=== PATIENT | female | born 1930 | race Caucasian/White ===

== ENCOUNTER 2019-03-14 15:19 | Observation (INO) ==
[2019-03-14 15:27] VITALS: BMI 19.0
--- NOTE | 2019-03-14 16:16 | DR.EXTPAIN ---
HPI Time seen Time Seen by Provider: 03/14/19 16:09 PCP Primary Care Physician: DOMINIK HPI Comment HPI Comment: Patient states that [facility] but was unaware of the fall. She sustained a large hematoma of the forehead. There was no LOC. Complaint/Symptoms Chief Complaint Doctor Comments: Fell while [facility] the [facility] Chief Complaint:: PATSY BLACK AND STATE PT. HAD FALLEN AND HAS A LARGE HEMATOMA TO HER FOREHEAD. PT. C/O LEFT ELBOW PAIN. SKIN TEAR TO LEFT ELBOW. NO LOC. Source History Provided: Patient and Retirement Mode of arrival Mode of Arrival: Wheelchair Timing Onset of Chief Complaint: 03/14/19 PMH PMH Past Medical History: Yes Past Medical History: Anxiety, Arthritis, Depression, Dyslipidemia, GERD, Hypertension and Hypothyroidism Past Medical History Comment: WEDGE COMPRESSION FRACTURES OF LUMBAR VERTEBRA Past Surgical History: Yes Surgical History: Unknown Family History History of Family Medical Conditions: No Social History Does patient currently use any type of tobacco product: No Have you used tobacco products in the last 12 months: No Type of Tobacco Use: None Does any household member use tobacco: No Alcohol Use: None Do you use any recreational Drugs:: No Lives Where: [facility]irement infectious screening In the last 2 months have you had wt loss of >10#?: NO Have you had fever, night sweats or hemotysis?: No Have you traveled outside the country in the last 6 months?: No Isolation: Standard ROS Review of Systems Constitutional: No Symptoms Reported Eyes: Blurred Vision ENTM: No Symptoms Reported Respiratoy: No Symptoms Reported Cardiovascular: No Symptoms Reported Gastrointestinal/Abdominal: No Symptoms Reported Genitourinary: No Symptoms Reported Neurological: No Symptoms Reported Musculoskeletal: No Symptoms Reported Integumentary: No Symptoms Reported Hematologic/Lymphatic: No Symptoms Reported Psychiatric: No Symptoms Reported All Other Systems: Reviewed and Negative PE Vital Signs Vitals: Temperature 97.2 F Pulse Rate [Right Brachial] 93 Pulse Rate 91 Respiratory Rate 17 Blood Pressure [Left Arm] 159/69 Blood Pressure [Right Arm] 164/70 Blood Pressure 219/92 O2 Sat by Pulse Oximetry 95 General Limitations: No Limitations General Appearance: Alert and In No Apparent Distress Head Head Exam: Normal Inspection, Normocephalic and Other (A large hematoma on the left forehead) Eyes Eye exam: Normal Appearance, PERRL and EOMI ENT ENT Exam: Normal Exam, Normal Oropharynx, Normal External Ear Exam and TM's Normal Bilaterally Neck Neck Exam: Normal Inspection and Full ROM Chest Chest Inspection: Normal Inspection and Symmetric Chest Wall Rise Respiratory Respiratory Exam: Normal Lung Sounds Bilat Respiratory Exam: Bilateral: Clear to Auscultation Cardiovascular Cardiovascular Exam: Regular Rate and Normal Rhythm Abdominal Exam Abdominal Exam: Normal Inspection, Normal Bowel Sounds and Soft Extremities Extremities Exam: Normal Inspection Upper Extremities Shoulder Exam: Normal Inspection Arm Exam: Normal Inspection Forearm Exam: Normal Inspection Neuromotor Exam: Normal Exam Neurosensory Exam: Normal Exam Lower Extremities Hip/Pelvis Exam: Normal Inspection Upper Leg Exam: Normal Inspection Knee Exam: Normal Inspection Lower Leg Exam: Normal Inspection Ankle Exam: Normal Inspection Foot/Toe Exam: Normal Inspection and Full ROM Neurovascular/Tendon Exam: Normal Capillary Refill Gait Exam: Observed and Normal Back Back Exam: Normal Inspection Neurological Neurological Exam: Alert, Oriented X3 and CN II-XII Intact Psychiatric Psychiatric Exam: Normal Affect and Normal Mood Skin Skin Exam: Warm, Dry and Intact COURSE Treatment Treatment: Since admission the forehead has become engorged with a large hematoma. Consultation Called: 04:50 Consultation Comments: Dr. Craig agreed to admit for observations for neurochecks ROR Labs Reviewed Result Diagrams: 03/14/19 17:19 03/14/19 17:19 Laboratory: WBC 6.2 X10^3/uL (3.6-10.0) 03/14/19 17:19 RBC 3.90 X10^6/uL (3.5-5.4) 03/14/19 17:19 Hgb 13.1 g/dL (12.0-16.0) 03/14/19 17:19 Hct 38.6 % (36.0-47.0) 03/14/19 17:19 MCV 99.0 fL (80.0-100.0) 03/14/19 17:19 MCH 33.7 pg (27.0-34.0) 03/14/19 17:19 MCHC 34.0 g/dL (33.0-35.0) 03/14/19 17:19 RDW 16.5 % (11.6-16.5) 03/14/19 17:19 Plt Count 252 X10^3/uL (150.0-450.0) 03/14/19 17:19 MPV 6.9 fL (7.4-11.0) L 03/14/19 17:19 Neut % (Auto) 73.0 % (42.0-75.0) 03/14/19 17:19 Lymph % (Auto) 15.6 % (21.0-51.0) L 03/14/19 17:19 [place] % (Auto) 9.6 % (0.0-13.0) 03/14/19 17:19 Eos % (Auto) 1.2 % (0.9-2.9) 03/14/19 17:19 Baso % (Auto) 0.6 % (0.2-1.0) 03/14/19 17:19 Neut # (Auto) 4.6 x10^3/uL (2.2-4.8) 03/14/19 17:19 Lymph # (Auto) 1.0 X10^3/uL (1.3-2.9) L 03/14/19 17:19 [place] # (Auto) 0.6 x10^3/uL (0.3-0.8) 03/14/19 17:19 Eos # (Auto) 0.1 x10^3/uL (0.0-0.2) 03/14/19 17:19 Baso # (Auto) 0.0 X10^3/uL (0.0-0.1) 03/14/19 17:19 Absolute Nucleated RBC 0.0 /100WBC 03/14/19 17:19 INR Target Range - 03/14/19 17:19 INR 1.04 (0.8-1.3) 03/14/19 17:19 APTT 20.0 SECONDS (22.9-36.5) L 03/14/19 17:19 PTT Comment - 03/14/19 17:19 Sodium 141 mmol/L (136-145) 03/14/19 17:19 Corrected Sodium 141 mmol/L (136-145) 03/14/19 17:19 Potassium 4.4 mmol/L (3.5-5.1) 03/14/19 17:19 Chloride 108 mmol/L (98-107) H 03/14/19 17:19 Carbon Dioxide 25.2 mmol/L (21-32) 03/14/19 17:19 BUN 18 mg/dL (7-18) 03/14/19 17:19 Creatinine 0.77 mg/dL (0.55-1.02) 03/14/19 17:19 Est GFR (MDRD) Af Amer > 60 (>60) 03/14/19 17:19 Est GFR (MDRD) Non-Af > 60 (>60) 03/14/19 17:19 Glucose 117 mg/dL (65-99) H 03/14/19 17:19 Calcium 8.7 mg/dL (8.5-10.1) 03/14/19 17:19 Corrected Calcium TNP 03/14/19 17:19 Total Bilirubin 0.30 mg/dL (0.2-1.0) 03/14/19 17:19 AST 23 Units/L (15-37) 03/14/19 17:19 ALT 23 Units/L (12-78) 03/14/19 17:19 Alkaline Phosphatase 165 Units/L (46-116) H 03/14/19 17:19 Creatine Kinase 60 Units/L (26-192) 03/14/19 17:19 CK-MB (CK-2) 1.7 ng/mL (0-4.0) 03/14/19 17:19 CK/CKMB % Calc 2.8 % (<4) 03/14/19 17:19 Troponin I < 0.02 ng/mL (0-1.5) 03/14/19 17:19 Total Protein 7.1 g/dL (6.4-8.2) 03/14/19 17:19 Albumin 3.5 g/dL (3.4-5.0) 03/14/19 17:19 Globulin 3.6 g/dL (2.5-4.5) 03/14/19 17:19 Albumin/Globulin Ratio 1.0 Ratio (1.1-2.1) L 03/14/19 17:19 Other Results Comments: CT Brain: Large frontal scalp hematoma without fracture or acute intracranial abnormality. Left Elbow: Degenerative change without fracture or malalignment left elbow. XRAY XRAY Interpreted by: Radiologist Opioid Opioid Risk Tool Total: 0 Total Score Risk Category: Low Risk Copyright: [place] predicting aberrant behaviors Diagnosis Discharge Problem: Hematoma of frontal scalp Qualifiers: Encounter type: initial encounter Qualified Code(s): S00.03XA - Contusion of scalp, initial encounter Instructions Forms: Excuse From Work ADDITIONAL NOTES Additional Notes Additional Notes: Admitted for observation and neurochecks
--- NOTE | 2019-03-14 16:22 | CT ---
HISTORY: Large hematoma status post fall Study: CT brain without contrast Comparison: None Technique: Multiple axial images of the brain were obtained without administration of IV contrast. Dose reduction techniques including Automated Exposure Control (AEC) and adjustment of mA and kV were utilized. Findings: There is cerebral volume loss and nonspecific white matter hypoattenuation likely related to chronic microvascular ischemic changes. No evidence of acute hemorrhage, midline shift, mass effect or abnormal extra-axial fluid collection. The ventricular system is symmetric and nondilated. There is a large frontal scalp hematoma and laceration. No calvarial fracture identified. The visualized paranasal sinuses are clear. Incidental note of fat density in the quadrigeminal cistern compatible with a small lipoma. IMPRESSION: 1. Large frontal scalp hematoma without fracture or acute intracranial abnormality. Reported By:
--- NOTE | 2019-03-14 16:56 | RAD ---
ELBOW RADIOGRAPHS CLINICAL HISTORY: 88-year-old female status post fall with left elbow pain. COMPARISON: None. FINDINGS: 3 views of the left elbow demonstrate no acute fracture or malalignment. The joint spaces are maintained. Well corticated small calcification anterior to the radial head. There is no joint effusion. The mineralization is normal. There is no aggressive bone lesion or abnormal periosteal reaction. There is no soft tissue calcification or gas. IMPRESSION: Degenerative change without fracture or malalignment left elbow. Reported By:
[2019-03-14] MEDS ORDERED: NORCO 5/325 MG TAB PO PRN (17:15)
[2019-03-14] MEDS ORDERED: MIRALAX POWDER (255 GRAMS BTL) PO PRN (17:15)
[2019-03-14 17:35] LABS: BASOPHILS % (AUTO) 0.6 % (0.2-1.0); EOSINOPHILS # (AUTO) 0.1 x10^3/uL (0.0-0.2); EOSINOPHILS % (AUTO) 1.2 % (0.9-2.9); HEMATOCRIT 38.6 % (36.0-47.0); HEMOGLOBIN 13.1 g/dL (12.0-16.0); LYMPHOCYTES % (AUTO) 15.6 % (21.0-51.0); MEAN CORPUSCULAR HEMOGLOBIN 33.7 pg (27.0-34.0); MEAN PLATELET VOLUME 6.9 fL (7.4-11.0); MONOCYTES # (AUTO) 0.6 x10^3/uL (0.3-0.8); MONOCYTES % (AUTO) 9.6 % (0.0-13.0); NEUTROPHILS # (AUTO) 4.6 x10^3/uL (2.2-4.8); PLATELET COUNT 252 X10^3/uL (150.0-450.0); RED CELL DISTRIBUTION WIDTH 16.5 % (11.6-16.5); WHITE BLOOD COUNT 6.2 X10^3/uL (3.6-10.0)
[2019-03-14 17:55] LABS: ALANINE AMINOTRANSFERASE 23 Units/L (12-78); ALBUMIN 3.5 g/dL (3.4-5.0); ALKALINE PHOSPHATASE 165 Units/L (46-116); ASPARTATE AMINO TRANSFERASE 23 Units/L (15-37); BLOOD UREA NITROGEN 18 mg/dL (7-18); CALCIUM 8.7 mg/dL (8.5-10.1); CARBON DIOXIDE 25.2 mmol/L (21-32); CHLORIDE 108 mmol/L (98-107); CKMB % 2.8 % (<4); COR NA(FOR HYPERGLY) 141 mmol/L (136-145); CREATINE KINASE 60 Units/L (26-192); CREATINE KINASE MB 1.7 ng/mL (0-4.0); CREATININE 0.77 mg/dL (0.55-1.02); SODIUM 141 mmol/L (136-145); TOTAL PROTEIN 7.1 g/dL (6.4-8.2); TROPONIN I < 0.02 ng/mL (0-1.5); eGFR NON BLACK RACES > 60 (>60)
[2019-03-14] MEDS ORDERED: PROLIA SC SCH (18:00)
[2019-03-14] MEDS ORDERED: NS 1000 ML 1,000 ML ONE (18:34)
[2019-03-14] MEDS: NS 1000 ML 1,000 ML IV SCH (18:34)
[2019-03-14] MEDS ORDERED: HIBICLENS WASH ONE (18:35)
[2019-03-14] MEDS ORDERED: BACITRACIN ZINC ONE (18:35)
[2019-03-14 20:59] LABS: BILIRUBIN,URINE NEGATIVE (NEGATIVE); BLOOD/HEMOGLOBIN,URINE 3+ (NEGATIVE); GLUCOSE, URINE NEGATIVE (NEGATIVE); KETONES,URINE NEGATIVE (NEGATIVE); LEUKOCYTE ESTERASE ,URINE 1+ (NEGATIVE); NITRITES,URINE NEGATIVE (NEGATIVE); PROTEIN,URINE NEGATIVE (NEGATIVE); UROBILINOGEN,URINE NORMAL (NORMAL)
[2019-03-14 21:01] LABS: APPEARANCE,URINE CLEAR (CLEAR); COLOR,URINE YELLOW (YELLOW)
[2019-03-14 21:05] LABS: BACTERIA,URINE NEGATIVE /HPF (NEGATIVE); SQUAMOUS EPITHELIAL CELL,UR NEGATIVE /HPF (NEGATIVE)
[2019-03-14] MEDS: MEGACE PO SCH (22:00)
[2019-03-14] MEDS: LACRI-LUBE S.O.P. AFFEYE SCH ×2 (22:00→22:14)
[2019-03-14] MEDS: OXYBUTYNIN CHLORIDE ER PO SCH (22:01)
[2019-03-14] MEDS: ULTRAM PO SCH (22:01)
[2019-03-14] MEDS: NEURONTIN CAP 300 MG PO SCH (22:01)
[2019-03-14] MEDS: VOLTAREN 1 % GEL MULTI DOSE TUBE TOP SCH (22:13)
[2019-03-15] MEDS: NS 1000 ML 1,000 ML IV SCH (06:03)
[2019-03-15 06:15] LABS: BASOPHILS % (AUTO) 0.4 % (0.2-1.0); EOSINOPHILS # (AUTO) 0.1 x10^3/uL (0.0-0.2); HEMATOCRIT 35.2 % (36.0-47.0); LYMPHOCYTES # (AUTO) 1.6 X10^3/uL (1.3-2.9); LYMPHOCYTES % (AUTO) 26.8 % (21.0-51.0); MEAN CORPUSCULAR HEMOGLOBIN 33.8 pg (27.0-34.0); MEAN CORPUSCULAR VOLUME 99.4 fL (80.0-100.0); MEAN PLATELET VOLUME 6.8 fL (7.4-11.0); MONOCYTES # (AUTO) 0.6 x10^3/uL (0.3-0.8); MONOCYTES % (AUTO) 10.9 % (0.0-13.0); NEUTROPHILS # (AUTO) 3.5 x10^3/uL (2.2-4.8); NEUTROPHILS % (AUTO) 59.9 % (42.0-75.0); PLATELET COUNT 212 X10^3/uL (150.0-450.0); RED BLOOD COUNT 3.54 X10^6/uL (3.5-5.4); RED CELL DISTRIBUTION WIDTH 16.5 % (11.6-16.5); WHITE BLOOD COUNT 5.8 X10^3/uL (3.6-10.0)
[2019-03-15 06:54] LABS: ALANINE AMINOTRANSFERASE 19 Units/L (12-78); ALBUMIN 2.9 g/dL (3.4-5.0); ALKALINE PHOSPHATASE 129 Units/L (46-116); ASPARTATE AMINO TRANSFERASE 23 Units/L (15-37); BLOOD UREA NITROGEN 12 mg/dL (7-18); CALCIUM 7.9 mg/dL (8.5-10.1); CARBON DIOXIDE 22.1 mmol/L (21-32); CHLORIDE 110 mmol/L (98-107); COR CA(FOR HYPOALB) 8.8 mg/dL (8.5-10.1); CREATININE 0.63 mg/dL (0.55-1.02); SODIUM 142 mmol/L (136-145); TOTAL PROTEIN 6.1 g/dL (6.4-8.2); eGFR NON BLACK RACES > 60 (>60)
[2019-03-15] MEDS: CELEXA PO SCH (08:48)
[2019-03-15] MEDS: EVISTA PO SCH (08:49)
[2019-03-15] MEDS: COZAAR PO SCH (08:49)
[2019-03-15] MEDS: LACRI-LUBE S.O.P. AFFEYE SCH ×2 (08:50→20:45)
[2019-03-15] MEDS: MEGACE PO SCH ×2 (08:50→20:45)
[2019-03-15] MEDS: MOBIC TAB 15 MG PO SCH (08:50)
[2019-03-15] MEDS: PriLOSEC PO SCH (08:50)
[2019-03-15] MEDS: ULTRAM PO SCH ×2 (08:51→20:44)
[2019-03-15] MEDS: TAB-A-VITE PO SCH (08:51)
[2019-03-15] MEDS: VOLTAREN 1 % GEL MULTI DOSE TUBE TOP SCH ×2 (08:52→20:46)
[2019-03-15] MEDS: VITAMIN C PO SCH (08:52)
[2019-03-15] MEDS: ZINC SULFATE PO SCH (08:52)
[2019-03-15] MEDS ORDERED: PHARMACY CONSULT - DOSE _____ XX SCH (09:00)
--- NOTE | 2019-03-15 12:00 | DR.H&P ---
H&P - History & Physical for Day of: H&P Date: 03/14/19 - Chief Complaint Chief Complaint: FALLS, HEMATOMA - History of Present Illness History of Present Illness: IS A 88 YEAR OLD PATIENT OF OURS. SHE IS A RESIDENT OF [facility]. SHE PRESENTED TODAY DUE TO A LARGE HEMATOMA TO THE FOREHEAD. STAFF REPORTS THAT PATIENT FELL. THEY DENY LOC. PATIENT ALSO COMPLAINS OF LEFT ELBOW PAIN. ON ARRIVAL, VITALS WERE 97.2-91-17-95%-219/92. LABS WERE OBTAINED. ABNORMAL LAB VALUES INCLUDE THE FOLLOWING: PTT 20.0, CHLORIDE 108, GLUCOSE 117, ALK PHOS 165. CARDIAC ENZYMES WITHIN NORMAL LIMITS. A URINALYSIS WAS OBTAINED AND REVEALED: WBC 0-2, RBC 5-10, LEUKOCYTES 1+, BACTERIA NEGATIVE. A BRAIN CT WAS OBTAINED AND REVEALED: Large frontal scalp hematoma without fracture or acute intracranial abnormality. A LEFT ELBOW XRAY WAS OBTAINED AND REVEALED: Degenerative change without fracture or malalignment left elbow. EKG OBTAINED AND REVEALED: SINUS RHYTHM WITH HR 79. SHE WAS ADMITTED FOR A LARGE FRONTAL HEMATOMA AND FREQUENT FALLS. SHE WAS STARTED ON NORMAL SALINE AT 80ML/HR AND HOME MEDS WERE RESUMED. WE WILL ORDER FOR NEUROCHECKS Q2H. OTHERWISE, WE WILL FOLLOW UP WITH AM LABS AND CONTINUE TO MONITOR. - Past Medical History Past Medical History: Hypertension, Dyslipidemia, Depression, Anxiety, Hypothyroidism, GERD, Arthritis - Past Surgical History Surgical History: Unknown - Social History Does patient currently use any type of tobacco product: No Have you used tobacco products in the last 12 months: No Type of Tobacco Use: None Does any household member use tobacco: No Alcohol Use: None Drug Use: None Prescription drug monitoring program results: PDMP reviewed and no concerns identified - Medications Home Medications: codeine Allergy (Verified 03/14/19 16:16) lorazepam [From Ativan] Allergy (Verified 03/14/19 16:16) Sulfa (Sulfonamide Antibiotics) [SULFA] Allergy (Verified 03/14/19 16:16) CONTINUE taking the following medications ascorbic acid (vitamin C) [Vitamin C] 500 mg PO DAILY 03/14/19 [History] diclofenac sodium [Voltaren] 1 applic TOPICAL BID 03/14/19 [History] gabapentin 300 mg PO HS 03/14/19 [History] hydrocodone-acetaminophen [[place]] 1 tab PO Q12H PRN 03/14/19 [History] megestrol 20 mg PO BID 03/14/19 [History] meloxicam 15 mg PO DAILY 03/14/19 [History] multivitamin 1 tab PO DAILY 03/14/19 [History] polyethylene glycol 3350 [Miralax] 17 g PO DAILY PRN 03/14/19 [History] raloxifene [Evista] 60 mg PO DAILY 03/14/19 [History] tramadol [Ultram] 50 mg PO BID 03/14/19 [History] zinc 50 mg PO DAILY 03/14/19 [History] - Review of Systems Constitutional: Weakness Eyes: No Symptoms Reported ENT: No Symptoms Reported Respiratory: No Symptoms Reported Cardiovascular: No Symptoms Reported Gastrointestinal: No Symptoms Reported Genitourinary: No Symptoms Reported Musculoskeletal: See HPI Skin: See HPI, Wound (LARGE FRONTAL HEMATOMA ) Neurological: Weakness - Physical Exam Vital Signs: Temperature 97.8 F Pulse Rate [Right Brachial] 77 Pulse Rate 91 Respiratory Rate 20 Blood Pressure [Left Arm] 156/65 Blood Pressure [Right Arm] 151/58 Blood Pressure 219/92 O2 Sat by Pulse Oximetry 96 Oriented: Normal Eyes: Normal Ear: Normal Nose: Normal Throat: Normal Respiratory: Diminished Throughout Cardiovascular: Normal : Normal Auscultation: Bowel Sounds: Normal Palpation: Normal Tenderness: Normal Skin: Normal Musculoskeletal: Left, Elbow, Tender Psychiatric: Normal Mood Description: Calm Affect: Normal Speech Pattern: Clear - Assessment/Plan (1) Hematoma of frontal scalp Qualifiers: Encounter type: initial encounter Qualified Code(s): S00.03XA - Contusion of scalp, initial encounter Status: Acute (2) Frequent falls Status: Acute - Allergies Allergies/Adverse Reactions: Allergies Allergy/AdvReac Type Severity Reaction Status Date / Time codeine Allergy Verified 03/14/19 16:16 lorazepam [From Ativan] Allergy Verified 03/14/19 16:16 Sulfa (Sulfonamide Allergy Verified 03/14/19 16:16 Antibiotics) [SULFA]
[2019-03-15] MEDS ORDERED: SYNTHROID 112 mcg TAB PO SCH (16:30)
[2019-03-15] MEDS: OXYBUTYNIN CHLORIDE ER PO SCH (20:43)
[2019-03-15] MEDS: NEURONTIN CAP 300 MG PO SCH (20:45)
[2019-03-16 06:13] LABS: BASOPHILS % (AUTO) 0.4 % (0.2-1.0); EOSINOPHILS # (AUTO) 0.1 x10^3/uL (0.0-0.2); EOSINOPHILS % (AUTO) 1.9 % (0.9-2.9); HEMATOCRIT 34.3 % (36.0-47.0); HEMOGLOBIN 11.8 g/dL (12.0-16.0); LYMPHOCYTES # (AUTO) 1.4 X10^3/uL (1.3-2.9); LYMPHOCYTES % (AUTO) 25.4 % (21.0-51.0); MEAN CORPUSCULAR HGB CONC 34.4 g/dL (33.0-35.0); MEAN PLATELET VOLUME 6.8 fL (7.4-11.0); MONOCYTES # (AUTO) 0.7 x10^3/uL (0.3-0.8); MONOCYTES % (AUTO) 11.8 % (0.0-13.0); NEUTROPHILS # (AUTO) 3.4 x10^3/uL (2.2-4.8); NEUTROPHILS % (AUTO) 60.5 % (42.0-75.0); PLATELET COUNT 207 X10^3/uL (150.0-450.0); RED BLOOD COUNT 3.47 X10^6/uL (3.5-5.4); RED CELL DISTRIBUTION WIDTH 16.3 % (11.6-16.5); WHITE BLOOD COUNT 5.5 X10^3/uL (3.6-10.0)
[2019-03-16 06:54] LABS: ALANINE AMINOTRANSFERASE 19 Units/L (12-78); ALBUMIN 2.7 g/dL (3.4-5.0); ALKALINE PHOSPHATASE 119 Units/L (46-116); ASPARTATE AMINO TRANSFERASE 23 Units/L (15-37); BLOOD UREA NITROGEN 10 mg/dL (7-18); CALCIUM 7.7 mg/dL (8.5-10.1); CARBON DIOXIDE 21.4 mmol/L (21-32); CHLORIDE 110 mmol/L (98-107); COR CA(FOR HYPOALB) 8.7 mg/dL (8.5-10.1); CREATININE 0.64 mg/dL (0.55-1.02); SODIUM 142 mmol/L (136-145); TOTAL PROTEIN 5.9 g/dL (6.4-8.2); eGFR NON BLACK RACES > 60 (>60)
[2019-03-16] MEDS: CELEXA PO SCH (08:42)
[2019-03-16] MEDS: COZAAR PO SCH (08:42)
[2019-03-16] MEDS: EVISTA PO SCH (08:43)
[2019-03-16] MEDS: LACRI-LUBE S.O.P. AFFEYE SCH (08:43)
[2019-03-16] MEDS: MOBIC TAB 15 MG PO SCH (08:44)
[2019-03-16] MEDS: PriLOSEC PO SCH (08:44)
[2019-03-16] MEDS: MEGACE PO SCH (08:44)
[2019-03-16] MEDS: ULTRAM PO SCH (08:45)
[2019-03-16] MEDS: TAB-A-VITE PO SCH (08:45)
[2019-03-16] MEDS: VITAMIN C PO SCH (08:46)
[2019-03-16] MEDS: ZINC SULFATE PO SCH (08:47)
[2019-03-16] MEDS: VOLTAREN 1 % GEL MULTI DOSE TUBE TOP SCH (08:47)
[2019-03-16 09:20] VITALS: BP 117/67
== END 2019-03-16 11:44 ==
LOC: ER 15:19 → OBS 15:19
PROVIDERS: ADMIT Internal Medicine; ATTEND Internal Medicine
DX: S00.03XA Contusion of scalp, initial encounter; E03.8 Other specified hypothyroidism; I10 Essential (primary) hypertension; W18.39XA Other fall on same level, initial encounter; E78.2 Mixed hyperlipidemia; K21.9 Gastro-esophageal reflux disease without esophagitis; Z79.899 Other long term (current) drug therapy; M25.522 Pain in left elbow; Y92.129 Unspecified place in nursing home as the place of occurrence of the external cause; R94.31 Abnormal electrocardiogram [ECG] [EKG]; R29.6 Repeated falls
CPT/HCPCS: 36415; 70450; 73070; 80053; 81001; 82550; 82553; 84484; 85025; 85610; 85730; 93005; 96365; 97162; 99284; A4216; A4222; S0179; G0378; J0897; J7030